=== PATIENT | male | born 1945 | race Hispanic/Latino ===

== ENCOUNTER 2019-10-17 07:47 | Inpatient (IN) | payer MEDICARE ==
--- NOTE | 2019-10-17 08:59 | Emergency Department Report ---
<INDIA STEVENSON Monalisa - Last Filed: 10/17/19 13:22> ED Dizziness HPI - General Chief Complaint: Dizziness Stated Complaint: DIZZINESS Time Seen by Provider: 10/17/19 08:26 - Related Data Previous Rx's Medication Instructions Recorded Last Taken Type HYDROcodone/APAP 5-325 [[place] 1 - 2 each PO Q6HR PRN #16 tablet 04/17/15 Unknown Rx 5/325] Allergies Allergy/AdvReac Type Severity Reaction Status Date / Time No Known Allergies Allergy Unverified 04/17/15 10:16 ED Past Medical Hx - Medications Home Medications: Home Medications Medication Instructions Recorded Confirmed Last Taken Type HYDROcodone/APAP 5-325 [[place] 1 - 2 each PO Q6HR PRN #16 tablet 04/17/15 Unknown Rx 5/325] ED Medical Decision Making - Lab Data Result diagrams: 10/17/19 08:56 10/17/19 08:56 - Medical Decision Making I obtained a history from the patient. He states he had an episode of apparent vertigo where he saw the clock spinning for about a half an hour yesterday. He states his difficulty with ambulation began yesterday. He does not feel as if he is going to pass out. He describes this as dizziness and feeling like he may "walk into a wall". He is a bit of a poor historian RE the current symptoms. However, he does state that his difficulty walking due to dizziness was persistent today. In addition, he has a history of asthma neurosis fugax and has carotid Dopplers done every 4 months. He takes aspirin daily. I did ambulate the patient. His gait is a bit broad-based. It is not shuffling. His son states that he usually walks similar to this because he "has bad knees". His blood pressure at this time is in the 170s systolic. Impressions Vertigo Gait disturbance Uncontrolled hypertension AAA Plan We'll discuss with hospitalist. I believe the patient would be best admitted for observation MRI study and further workup possibly echocardiogram and repeat carotid Dopplers, etc. per hospitalist service. ED Disposition Clinical Impression: Dizziness, Ataxic gait Disposition: OP ADMIT IP TO THIS HOSP Condition: Stable Referrals: LEDY VASQUEZ MD [Primary Care Provider] - 3-5 Days <RETA FRANKEL - Last Filed: 10/17/19 14:37> ED Dizziness HPI - General Source: patient, EMS Mode of arrival: Stretcher Limitations: No Limitations - History of Present Illness Initial Comments: 74-year-old male patient with history of hypertension, amaurosis fuga x, and AAA presents with complaints of dizziness yesterday. Patient states dizziness occurs mainly with ambulation and he describes it as feeling unsteady and oriented. She states while sitting she does not feel dizzy. He denies any history of [place]/CVA/DVT/PE, headache, vision changes, confusion, speech changes, numbness/tingling/weakness, chest pain/shortness of breath, abdominal pain, changes in stools/urination, or fever/chills/sweats. Patient states he is unsure of the size of his AAA and last had it checked in June of this year and is due for another check in December of next year. MD Complaint: dizziness ED Review of Systems ROS: Stated complaint: DIZZINESS Other details as noted in HPI Constitutional: denies: chills, fever Eyes: denies: eye pain, vision change ENT: denies: hearing loss, epistaxis, congestion Respiratory: denies: cough, orthopnea, shortness of breath, SOB with exertion, SOB at rest Cardiovascular: denies: chest pain, palpitations, edema, syncope Endocrine: no symptoms reported Gastrointestinal: denies: abdominal pain, nausea, diarrhea Genitourinary: denies: urgency, dysuria, frequency, hematuria Musculoskeletal: denies: back pain, joint swelling, arthralgia Skin: denies: rash, lesions Neurological: denies: headache, weakness, numbness, paresthesias Psychiatric: denies: anxiety, depression Hematological/Lymphatic: denies: easy bleeding ED Past Medical Hx - Past Medical History Previous Medical History?: Yes Hx Hypertension: Yes Hx Heart Attack/AMI: Yes Hx Arthritis: Yes (OSTEOARTHRITIS) Additional medical history: CAD, Triple Bypass, AAA that is monitored every 4 months - Surgical History Past Surgical History?: Yes Hx Coronary Stent: Yes Hx Open Heart Surgery: Yes Additional Surgical History: MELANOMA REMOVED BACK - Social History Smoking Status: Never Smoker Substance Use Type: None ED Physical Exam - General Limitations: No Limitations General appearance: alert, in no apparent distress - Head Head exam: Present: atraumatic, normocephalic - Eye Eye exam: Present: normal appearance, PERRL, EOMI. Absent: scleral icterus - ENT ENT exam: Present: mucous membranes moist - Neck Neck exam: Present: normal inspection. Absent: tenderness, full ROM, lymphadeno jass - Respiratory Respiratory exam: Present: normal lung sounds bilaterally. Absent: respiratory distress, chest wall tenderness - Cardiovascular Cardiovascular Exam: Present: regular rate, normal rhythm. Absent: systolic murmur, diastolic murmur, rubs, gallop - GI/Abdominal GI/Abdominal exam: Present: soft, normal bowel sounds. Absent: distended, tenderness, guarding, rebound, rigid - Rectal Rectal exam: Present: deferred - Extremities Exam Extremities exam: Present: normal inspection, normal capillary refill. Absent: pedal edema, joint swelling, calf tenderness - Neurological Exam Neurological exam: Present: alert, oriented X3, CN II-XII intact. Absent: motor sensory deficit - Expanded Neurological Exam Expanded Speech: Present: fluid speech Cerebellar function: Finger to Nose: Normal, Heel to Márquez: Normal, Romberg: Normal Sensory exam: Upper Extremity Light Touch: Normal, Lower Extremity Light Touch: Normal Motor strength exam: RUE: 5, LUE: 5, RLE: 5, LLE: 5 - Psychiatric Psychiatric exam: Present: normal affect, normal mood - Skin Skin exam: Present: warm, dry, intact, normal color. Absent: rash ED Course Vital Signs 10/17/19 10/17/19 10/17/19 08:07 11:53 11:54 Temperature 98.3 F Pulse Rate 60 58 L 59 L Respiratory 16 13 Rate Blood Pressure 165/84 Blood Pressure 159/102 [Left] O2 Sat by Pulse 98 97 Oximetry ED Medical Decision Making - Lab Data Result diagrams: 10/17/19 08:56 10/17/19 08:56 Lab Results 10/17/19 10/17/19 10/17/19 Range/Units 08:19 08:19 08:56 WBC (4.5-11.0) K/mm3 RBC (3.65-5.03) M/mm3 Hgb (11.8-15.2) gm/dl Hct (35.5-45.6) % MCV (84-94) fl MCH (28-32) pg MCHC (32-34) % RDW (13.2-15.2) % Plt Count (140-440) K/mm3 PT 13.2 (12.2-14.9) Sec. INR 1.01 (0.87-1.13) Sodium 140 (137-145) mmol/L Potassium 4.4 (3.6-5.0) mmol/L Chloride 103.2 (98-107) mmol/L Carbon Dioxide 20 L (22-30) mmol/L Anion Gap 21 mmol/L BUN 14 (9-20) mg/dL Creatinine 0.9 (0.8-1.5) mg/dL Estimated GFR > 60 ml/min BUN/Creatinine Ratio 16 % Glucose 100 (75-100) mg/dL Calcium 9.4 (8.4-10.2) mg/dL Total Bilirubin 0.40 (0.1-1.2) mg/dL AST 17 (5-40) units/L ALT 16 (7-56) units/L Alkaline Phosphatase 47 (35-129) units/L Troponin T < 0.010 (0.00-0.029) ng/mL Total Protein 6.6 (6.3-8.2) g/dL Albumin 4.2 (3.9-5) g/dL Albumin/Globulin Ratio 1.8 % TSH (0.270-4.200) mlU/mL Urine Color (Yellow) Urine Turbidity (Clear) Urine pH (5.0-7.0) Ur Specific [place] (1.003-1.030) Urine Protein (Negative) mg/dL Urine Glucose (UA) (Negative) mg/dL Urine Ketones (Negative) mg/dL Urine Blood (Negative) Urine Nitrite (Negative) Urine Bilirubin (Negative) Urine Urobilinogen (<2.0) mg/dL Ur Leukocyte Esterase (Negative) Urine WBC (Auto) (0.0-6.0) /HPF Urine RBC (Auto) (0.0-6.0) /HPF 10/17/19 10/17/19 10/17/19 Range/Units 08:56 09:24 10:19 WBC 4.4 L (4.5-11.0) K/mm3 RBC 4.69 (3.65-5.03) M/mm3 Hgb 14.0 (11.8-15.2) gm/dl Hct 41.5 (35.5-45.6) % MCV 89 (84-94) fl MCH 30 (28-32) pg MCHC 34 (32-34) % RDW 13.4 (13.2-15.2) % Plt Count 208 (140-440) K/mm3 PT (12.2-14.9) Sec. INR (0.87-1.13) Sodium (137-145) mmol/L Potassium (3.6-5.0) mmol/L Chloride (98-107) mmol/L Carbon Dioxide (22-30) mmol/L Anion Gap mmol/L BUN (9-20) mg/dL Creatinine (0.8-1.5) mg/dL Estimated GFR ml/min BUN/Creatinine Ratio % Glucose (75-100) mg/dL Calcium (8.4-10.2) mg/dL Total Bilirubin (0.1-1.2) mg/dL AST (5-40) units/L ALT (7-56) units/L Alkaline Phosphatase (35-129) units/L Troponin T (0.00-0.029) ng/mL Total Protein (6.3-8.2) g/dL Albumin (3.9-5) g/dL Albumin/Globulin Ratio % TSH 1.180 (0.270-4.200) mlU/mL Urine Color Yellow (Yellow) Urine Turbidity Clear (Clear) Urine pH 7.0 (5.0-7.0) Ur Specific [place] 1.012 (1.003-1.030) Urine Protein <15 mg/dl (Negative) mg/dL Urine Glucose (UA) Neg (Negative) mg/dL Urine Ketones Neg (Negative) mg/dL Urine Blood Neg (Negative) Urine Nitrite Neg (Negative) Urine Bilirubin Neg (Negative) Urine Urobilinogen < 2.0 (<2.0) mg/dL Ur Leukocyte Esterase Neg (Negative) Urine WBC (Auto) < 1.0 (0.0-6.0) /HPF Urine RBC (Auto) 1.0 (0.0-6.0) /HPF - Radiology Data CT HEAD WITHOUT CONTRAST INDICATION / CLINICAL INFORMATION: Dizziness for one day. TECHNIQUE: Axial imaging performed from the skull apex through the skull base without the use of contrast. Sagittal and coronal reformatted images. All CT scans at this location are performed using CT dose reduction for ALARA by means of automated exposure control. COMPARISON: None available. FINDINGS: CEREBRAL PARENCHYMA: No significant abnormality. No acute territorial infarct. HEMORRHAGE: None. EXTRA-AXIAL SPACES: Normal in size and morphology for the patient's age. VENTRICULAR SYSTEM: Normal in size and morphology for the patient's age. MIDLINE SHIFT OR HERNIATION: None. CEREBELLUM / BRAINSTEM: No significant abnormality. CALVARIUM: No significant abnormality. ORBITS: Normal as visualized. PARANASAL SINUSES / MASTOID AIR CELLS: Normal as visualized. SOFT TISSUES of HEAD: No significant abnormality. ADDITIONAL FINDINGS: None. IMPRESSION: No acute intracranial abnormality. . . . . CHEST 1 VIEW INDICATION: dizziness. COMPARISON: None FINDINGS: Support devices: None. Heart: Heart size is within normal limits. Previous CABG changes are suspected. Lungs/Pleura: No acute air space or interstitial disease. Additional findings: None. IMPRESSION: No acute findings. Critical care attestation.: If time is entered above; I have spent that time in minutes in the direct care of this critically ill patient, excluding procedure time. ED Disposition Is pt being admited?: Yes
[2019-10-17 09:10] LABS: INR 1.01 (0.87-1.13)
--- NOTE | 2019-10-17 09:41 | Cat Scan Report ---
CT HEAD WITHOUT CONTRAST INDICATION / CLINICAL INFORMATION: Dizziness for one day. TECHNIQUE: Axial imaging performed from the skull apex through the skull base without the use of cont rast. Sagittal and coronal reformatted images. All CT scans at this location are performed using CT dose reduction for ALARA by means of automated exposure control. COMPARISON: None available. FINDINGS: CEREBRAL PARENCHYMA: No significant abnormality. No acute territorial infarct. HEMORRHAGE: None. EXTRA-AXIAL SPACES: Normal in size and morphology for the patient's age. VENTRICULAR SYSTEM: Normal in size and morphology for the patient's age. MIDLINE SHIFT OR HERNIATION: None. CEREBELLUM / BRAINSTEM: No significant abnormality. CALVARIUM: No significant abnormality. ORBITS: Normal as visualized. PARANASAL SINUSES / MASTOID AIR CELLS: Normal as visualized. SOFT TISSUES of HEAD: No significant abnormality. ADDITIONAL FINDINGS: None. IMPRESSION: No acute intracranial abnormality. Signer Name: Augusto Ornelas Jr, MD Signed: 10/17/2019 9:37 AM Workstation Name: [id number]
[2019-10-17 09:54] LABS: Hematocrit 41.5 % (35.5-45.6); Mean Corpuscular HGB Conc 34 % (32-34); Mean Corpuscular Volume 89 fl (84-94); Platelet Count 208 K/mm3 (140-440); Red Blood Count 4.69 M/mm3 (3.65-5.03); Red Cell Distribution Width 13.4 % (13.2-15.2)
--- NOTE | 2019-10-17 09:57 | XRay Report ---
CHEST 1 VIEW INDICATION: dizziness. COMPARISON: None FINDINGS: Support devices: None. Heart: Heart size is within normal limits. Previous CABG changes are suspected. Lungs/Pleura: No acute air space or interstitial disease. Additional findings: None. IMPRESSION: No acute findings. Signer Name: Aguusto Ornelas Jr, MD Signed: 10/17/2019 9:52 AM Workstation Name: [id number]
[2019-10-17 10:09] LABS: Alanine Aminotransferase 16 units/L (7-56); Albumin 4.2 g/dL (3.9-5); BUN/Creatinine Ratio 16; Blood Urea Nitrogen 14 mg/dL (9-20); Calcium 9.4 mg/dL (8.4-10.2); Hemolysis Index 21
[2019-10-17] MEDS ORDERED: SODIUM CHLORIDE 0.9% 1000 ML 1,000 ML IV ONE (10:46)
[2019-10-17 11:15] LABS: Bilirubin,Urine NEG (Negative); Blood,Urine NEG (Negative); Color,Urine Yellow (Yellow); Protein,Urine <15 mg/dL mg/dL (Negative); Urobilinogen,Urine < 2.0 mg/dL (<2.0); WBC,Urine < 1.0 /HPF (0.0-6.0)
[2019-10-17] MEDS ORDERED: ACETAMINOPHEN 325 MG TAB PO PRN ×2 (20:57→20:59)
[2019-10-17] MEDS ORDERED: METOCLOPRAMIDE 10 MG/2 ML INJ IV PRN (20:59)
[2019-10-17] MEDS ORDERED: HYDROmorphone 1 MG/1 ML INJ IV PRN (20:59)
[2019-10-17] MEDS ORDERED: ONDANSETRON 4 MG/2 ML INJ IV PRN (20:59)
[2019-10-17] MEDS ORDERED: NON-FORMULARY EACH (Losartan Potassium [Losartan Potassium] 100 MG) PO SCH (21:00)
[2019-10-17] MEDS ORDERED: SODIUM CHLORIDE 0.9% 1000 ML 1,000 ML IV SCH (21:00)
--- NOTE | 2019-10-17 21:11 | History and Physical Report ---
History of Present Illness Date of examination: 10/17/19 Date of admission: 10/17/19 13:55 Chief complaint: Dizziness and unsteady gait since yesterday History of present illness: 74-year-old male with history of hypertension coronary, coronary artery disease: Triple bypass surgery and aortic abdominal aneurysm which is stable comes in for unsteady gait and dizziness since yesterday. No dysarthria. No nausea or vomiting. No diplopia. No nasal regurgitation of fluids. Patient has been persistently unsteady while walking as also has severe dizzine ss. No other precipitating or exacerbating factors. No shortness of breath or chest pain. Past History Past Medical History: CAD (patient had triple bypass surgery), hypertension, hyperlipidemia, other (patient has abdominal aortic aneurysm which is stable as per the patient) Past Surgical History: CABG (3), PTCA Social history: lives with family, full code. denies: smoking (quit smoking in the past) Family history: hypertension Medications and Allergies Allergies Allergy/AdvReac Type Severity Reaction Status Date / Time No Known Allergies Allergy Unverified 04/17/15 10:16 Home Medications Medication Instructions Recorded Confirmed Last Taken Type Acetaminophen [Tylenol] 650 mg PO Q6HR PRN 10/17/19 10/17/19 Unknown History Aspirin [Aspirin BABY CHEW TAB] 81 mg PO BID 10/17/19 10/17/19 Unknown History Losartan Potassium 100 mg PO DAILY 10/17/19 10/17/19 Unknown History Metoprolol Xl [Metoprolol 100 mg PO DAILY 10/17/19 10/17/19 Unknown History SUCCINATE ER TAB] Simvastatin 40 mg PO DAILY 10/17/19 10/17/19 Unknown History Active Meds: Active Medications Acetaminophen (Tylenol) 650 mg PO Q4H PRN PRN Reason: Pain MILD(1-3)/Fever >100.5/[place] Aspirin (Baby Aspirin) 81 mg PO BID DAYA Famotidine (Pepcid) 20 mg IV BID DAYA Hydromorphone HCl (Dilaudid) 0.5 mg IV Q3H PRN PRN Reason: Pain , Severe (7-10) Sodium Chloride (Nacl 0.9% 1000 Ml) 1,000 mls @ 75 mls/hr IV DIRECT DAYA Metoclopramide HCl (Reglan) 10 mg IV Q6H PRN PRN Reason: Nausea And Vomiting Metoprolol Succinate (Metoprolol Xl) 100 mg PO DAILY [facility] Miscellaneous Medication (Losartan Potassium [Losartan Potassium]) 100 mg PO DAILY [facility] Miscellaneous Medication (Simvastatin [Simvastatin]) 40 mg PO DAILY [facility] Ondansetron HCl (Zofran) 4 mg IV Q8H PRN PRN Reason: Nausea And Vomiting Oxycodone/Acetaminophen (Percocet 5/325) 1 tab PO Q6H PRN PRN Reason: Pain, Moderate (4-6) Sodium Chloride (Sodium Chloride Flush Syringe 10 Ml) 10 ml IV BID DAYA Sodium Chloride (Sodium Chloride Flush Syringe 10 Ml) 10 ml IV PRN PRN PRN Reason: LINE FLUSH Review of Systems All systems: negative Constitutional: no weight loss, no weight gain, no fever, no chills, no sweats, no night sweats Ears, nose, mouth and throat: no nose pain, no nasal congestion, no sinus pressure Cardiovascular: no chest pain, no orthopnea, no palpitations, no rapid/irregular heart beat Respiratory: no cough, no cough with sputum, no excessive sputum, no hemoptysis, no shortness of breath, no dyspnea on exertion Gastrointestinal: no nausea (every ordered on this for a), no vomiting Rectal: pain Musculoskeletal: no neck stiffness, no neck pain Integumentary: no rash, no pruritis, no redness, no sores, no wounds, no jaundice, no boils, no blisters (hours always Bernie Og has a results and) Neurological: ataxia (follow-up), lack of coordination, gait dysfunction Psychiatric: no anxiety, no memory loss, no change in sleep habits, no sleep disturbances, no insomnia, no hypersomnia, no change in appetite, no change in libido, no suicidal ideation, no disorientation, no hallucinations Endocrine: no cold intolerance, no heat intolerance, no polyphagia Hematologic/Lymphatic: no easy bruising, no easy bleeding Allergic/Immunologic: no urticaria, no allergic rhinitis, no wheezing Exam - Constitutional Vitals: Temp Pulse Resp BP Pulse Ox 97.9 F 70 24 161/86 92 10/17/19 16:24 10/17/19 16:24 10/17/19 17:55 10/17/19 16:24 10/17/19 16:24 General appearance: Present: no acute distress, well-nourished - EENT Eyes: Present: PERRL ENT: hearing intact, clear oral mucosa - Neck Neck: Present: supple, normal ROM - Respiratory Respiratory effort: normal Respiratory: bilateral: CTA - Cardiovascular Heart rate: 78 Rhythm: regular Heart Sounds: Present: S1 & S2. Absent: rub, click - Extremities Extremities: no ischemia, pulses intact, pulses symmetrical, No edema Peripheral Pulses: within normal limits - Abdominal General gastrointestinal: Present: soft, non-tender, non-distended, normal bowel sounds Male genitourinary: Present: normal - Integumentary Integumentary: Present: clear, warm, dry - Musculoskeletal Musculoskeletal: gait normal, strength equal bilaterally - Psychiatric Psychiatric: appropriate mood/affect, intact judgment & insight - Neurologic Neurologic: CNII-XII intact, moves all extremities, gait normal (ataxic gait) - Allied Health Allied health notes reviewed: nursing, case management Results - Labs CBC & Chem 7: 10/17/19 08:56 10/17/19 08:56 Labs: Laboratory Last Values WBC 4.4 K/mm3 (4.5-11.0) L 10/17/19 08:56 RBC 4.69 M/mm3 (3.65-5.03) 10/17/19 08:56 Hgb 14.0 gm/dl (11.8-15.2) 10/17/19 08:56 Hct 41.5 % (35.5-45.6) 10/17/19 08:56 MCV 89 fl (84-94) 10/17/19 08:56 MCH 30 pg (28-32) 10/17/19 08:56 MCHC 34 % (32-34) 10/17/19 08:56 RDW 13.4 % (13.2-15.2) 10/17/19 08:56 Plt Count 208 K/mm3 (140-440) 10/17/19 08:56 PT 13.2 Sec. (12.2-14.9) 10/17/19 08:19 INR 1.01 (0.87-1.13) 10/17/19 08:19 Sodium 140 mmol/L (137-145) 10/17/19 08:56 Potassium 4.4 mmol/L (3.6-5.0) 10/17/19 08:56 Chloride 103.2 mmol/L (98-107) 10/17/19 08:56 Carbon Dioxide 20 mmol/L (22-30) L 10/17/19 08:56 Anion Gap 21 mmol/L 10/17/19 08:56 BUN 14 mg/dL (9-20) 10/17/19 08:56 Creatinine 0.9 mg/dL (0.8-1.5) 10/17/19 08:56 Estimated GFR > 60 ml/min 10/17/19 08:56 BUN/Creatinine Ratio 16 % 10/17/19 08:56 Glucose 100 mg/dL (75-100) 10/17/19 08:56 Calcium 9.4 mg/dL (8.4-10.2) 10/17/19 08:56 Total Bilirubin 0.40 mg/dL (0.1-1.2) 10/17/19 08:56 AST 17 units/L (5-40) 10/17/19 08:56 ALT 16 units/L (7-56) 10/17/19 08:56 Alkaline Phosphatase 47 units/L (35-129) 10/17/19 08:56 Troponin T < 0.010 ng/mL (0.00-0.029) 10/17/19 08:19 Total Protein 6.6 g/dL (6.3-8.2) 10/17/19 08:56 Albumin 4.2 g/dL (3.9-5) 10/17/19 08:56 Albumin/Globulin Ratio 1.8 % 10/17/19 08:56 TSH 1.180 mlU/mL (0.270-4.200) 10/17/19 09:24 Urine Color Yellow (Yellow) 10/17/19 10:19 Urine Turbidity Clear (Clear) 10/17/19 10:19 Urine pH 7.0 (5.0-7.0) 10/17/19 10:19 Ur Specific [place] 1.012 (1.003-1.030) 10/17/19 10:19 Urine Protein <15 mg/dl mg/dL (Negative) 10/17/19 10:19 Urine Glucose (UA) Neg mg/dL (Negative) 10/17/19 10:19 Urine Ketones Neg mg/dL (Negative) 10/17/19 10:19 Urine Blood Neg (Negative) 10/17/19 10:19 Urine Nitrite Neg (Negative) 10/17/19 10:19 Urine Bilirubin Neg (Negative) 10/17/19 10:19 Urine Urobilinogen < 2.0 mg/dL (<2.0) 10/17/19 10:19 Ur Leukocyte Esterase Neg (Negative) 10/17/19 10:19 Urine WBC (Auto) < 1.0 /HPF (0.0-6.0) 10/17/19 10:19 Urine RBC (Auto) 1.0 /HPF (0.0-6.0) 10/17/19 10:19 - Imaging and Cardiology EKG: report reviewed Chest x-ray: report reviewed (no acute findings) CT Scan - head: report reviewed (No acute findings) Imaging and Cardiology: EKG SINUS RHYTHM LAD, CONSIDER LEFT ANTERIOR FASCICULAR BLOCK RECONCILIATION CHANGES: RACE: FROM [place] TO Assessment and Plan Advance Directives: Yes VTE prophylaxis?: Chemical Plan of care discussed with patient/family: Yes - Patient Problems (1) CVA (cerebral vascular accident) Current Visit: Yes Status: Acute Qualifiers: CVA mechanism: unspecified Qualified Code(s): I63.9 - Cerebral infarction, unspecified Plan to address problem: Acute CVA Versus TIA Patient has persistent ataxia No other cerebellar signs No diplopia, no nasal regurgitation of fluids, no difficulty swallowing. We'll get MRI and CVA workup Neurology Dr. Aviles consulted . (2) Hypertension Current Visit: Yes Status: Chronic Qualifiers: Hypertension type: essential hypertension Qualified Code(s): I10 - Essential (primary) hypertension Plan to address problem: Continue antihypertensive (3) Coronary artery disease Current Visit: Yes Status: Chronic Qualifiers: Coronary Disease-Associated Artery/Lesion type: [place] artery [place] vs. transplanted heart: [place] heart Plan to address problem: Continue aspirin (4) Abdominal aortic aneurysm Current Visit: Yes Status: Chronic Qualifiers: Presence of rupture: without rupture Qualified Code(s): I71.4 - Abdominal aortic aneurysm, without rupture Plan to address problem: Stable (5) Hyperlipidemia Current Visit: Yes Status: Chronic Qualifiers: Hyperlipidemia type: mixed hyperlipidemia Qualified Code(s): E78.2 - Mixed hyperlipidemia Plan to address problem: On statins (6) DVT prophylaxis Current Visit: Yes Status: Acute Plan to address problem: On heparin and GI prophylaxis
[2019-10-17] MEDS ORDERED: ASPIRIN 81 MG TAB CHEW PO SCH (22:00)
[2019-10-17] MEDS: LOSARTAN 50 MG TAB PO SCH ×2 (23:18→23:31)
[2019-10-17] MEDS: METOPROLOL SUCCINATE XL 100 MG TAB PO SCH ×2 (23:18→23:30)
[2019-10-17] MEDS: PRAVASTATIN 80 MG TAB PO SCH (23:19)
[2019-10-17] MEDS: HEPARIN 5,000 UNIT/1 ML VIAL SUB-Q SCH (23:19)
[2019-10-17] MEDS: ASPIRIN 325 MG TAB PO SCH (23:19)
[2019-10-17] MEDS: FAMOTIDINE 20 MG/2 ML INJ IV SCH (23:19)
[2019-10-18] MEDS ORDERED: diphenhydrAMINE 25 MG CAP PO PRN (00:09)
[2019-10-18 05:52] LABS: Basophils % (Auto) 0.5 % (0.0-1.8); Eosinophils # (Auto) 0.1 K/mm3 (0.0-0.4); Eosinophils % (Auto) 2.7 % (0.0-4.3); Hematocrit 39.3 % (35.5-45.6); Hemoglobin 13.4 gm/dl (11.8-15.2); Lymphocytes # (Auto) 1.5 K/mm3 (1.2-5.4); Lymphocytes % (Auto) 34.4 % (13.4-35.0); Mean Corpuscular HGB Conc 34 % (32-34); Mean Corpuscular Volume 88 fl (84-94); Monocytes # (Auto) 0.4 K/mm3 (0.0-0.8); Monocytes % (Auto) 10.3 % (0.0-7.3); Platelet Count 190 K/mm3 (140-440); Red Blood Count 4.46 M/mm3 (3.65-5.03); Red Cell Distribution Width 13.5 % (13.2-15.2)
[2019-10-18 07:08] LABS: Alanine Aminotransferase 12 units/L (7-56); Albumin 3.6 g/dL (3.9-5); BUN/Creatinine Ratio 17; Blood Urea Nitrogen 12 mg/dL (9-20); Calcium 8.9 mg/dL (8.4-10.2); Chol/HDL Ratio 3.21 %; HDL Cholesterol 33 mg/dL (40-59); Hemolysis Index 4; LDL Cholesterol,Direct 60 mg/dL (50-130)
[2019-10-18 07:48] VITALS: BP 181/89
[2019-10-18] MEDS: oxyCODONE /ACETAMINOPHEN 5-325MG TAB PO PRN ×2 (08:28→21:24)
[2019-10-18] MEDS ORDERED: NON-FORMULARY EACH (Simvastatin [Simvastatin] 40 MG) PO SCH (10:00)
[2019-10-18] MEDS: ASPIRIN 325 MG TAB PO SCH (10:08)
[2019-10-18] MEDS: METOPROLOL SUCCINATE XL 100 MG TAB PO SCH (10:08)
[2019-10-18] MEDS: LOSARTAN 50 MG TAB PO SCH (10:08)
[2019-10-18] MEDS: FAMOTIDINE 20 MG/2 ML INJ IV SCH ×2 (10:08→21:24)
[2019-10-18] MEDS: HEPARIN 5,000 UNIT/1 ML VIAL SUB-Q SCH ×2 (10:09→21:24)
--- NOTE | 2019-10-18 10:24 | Progress Note ---
Assessment and Plan Assessment and plan: 74-year-old man with previous history of amaurosis fugax of his right eye 7 years ago who presents to the hospital with 1 day of ataxic gait. The patient relates that he had a headache over his right eye and right blepharospasm which was similar to his previous episode. With that episode he lost vision in his right eye, but this time he did not lose any vision his right eye but instead noticed that he had trouble walking. He is more comfortable driving that he is walking at this time due to ataxia. Acue CVA? Tele- neurology input appreciated, neurology consulted, Allow permissive hypertension, has received aspirin, stroke education, observe for arrhythmia on telemetry, -neurology consult pending -Patient is on aspirin at home, so if this is determined to be a stroke, would be considered a failure of aspirin. Lipid panel at goal LDL of 60 awaiting MRI brain, , echo -MRA head, carotid Dopplers shows significant stenosis of left ICA Case discussed with neurologist, will obtain CTA of neck, MRI to be done tomorrow as today is a holiday Dx cva ? Carotid stenosis -HTN AAA- follow annually for US HLD History Interval history: Patient continues to complain that he is having ataxic gait. Denies dizziness, denies vertigo Review of systems Constitutional: No fevers, no malaise, no joint pains CVS: No chest pain, no orthopnea, no pedal edema GI: No abdominal pain, no diarrhea, no vomiting, no constipation Respiratory: , no wheezing, no coughing Hospitalist Physical - Physical exam Narrative exam: General.: Appears well, no distress, nontoxic HEENT: Moist mucous membranes, extraocular muscles intact, no lymphadenopathy Neck: supple Cardiac: S1-S2 heard Lungs: clear to auscultation bilaterally Abdomen: soft , nontender, nondistended, bowel sounds positive Extremities: no edema clubbing or cyanosis Skin: no rash or lesions Neurologic: Broad-based ataxic gait Psych: calm, and cooperative - Constitutional Vitals: Temp Pulse Resp BP Pulse Ox 98.0 F 64 18 181/89 97 10/18/19 07:46 10/18/19 07:46 10/18/19 07:46 10/18/19 07:46 10/18/19 07:46 General appearance: Present: no acute distress, well-nourished Results - Labs CBC & Chem 7: 10/18/19 04:30 10/18/19 04:30 Labs: Laboratory Last Values WBC 4.4 K/mm3 (4.5-11.0) L 10/18/19 04:30 RBC 4.46 M/mm3 (3.65-5.03) 10/18/19 04:30 Hgb 13.4 gm/dl (11.8-15.2) 10/18/19 04:30 Hct 39.3 % (35.5-45.6) 10/18/19 04:30 MCV 88 fl (84-94) 10/18/19 04:30 MCH 30 pg (28-32) 10/18/19 04:30 MCHC 34 % (32-34) 10/18/19 04:30 RDW 13.5 % (13.2-15.2) 10/18/19 04:30 Plt Count 190 K/mm3 (140-440) 10/18/19 04:30 Lymph % (Auto) 34.4 % (13.4-35.0) 10/18/19 04:30 [place] % (Auto) 10.3 % (0.0-7.3) H 10/18/19 04:30 Eos % (Auto) 2.7 % (0.0-4.3) 10/18/19 04:30 Baso % (Auto) 0.5 % (0.0-1.8) 10/18/19 04:30 Lymph # 1.5 K/mm3 (1.2-5.4) 10/18/19 04:30 Mora # 0.4 K/mm3 (0.0-0.8) 10/18/19 04:30 Eos # 0.1 K/mm3 (0.0-0.4) 10/18/19 04:30 Baso # 0.0 K/mm3 (0.0-0.1) 10/18/19 04:30 Seg Neutrophils % 52.1 % (40.0-70.0) 10/18/19 04:30 Seg Neutrophils # 2.3 K/mm3 (1.8-7.7) 10/18/19 04:30 PT 13.2 Sec. (12.2-14.9) 10/17/19 08:19 INR 1.01 (0.87-1.13) 10/17/19 08:19 Sodium 140 mmol/L (137-145) 10/18/19 04:30 Potassium 3.8 mmol/L (3.6-5.0) 10/18/19 04:30 Chloride 104.6 mmol/L (98-107) 10/18/19 04:30 Carbon Dioxide 20 mmol/L (22-30) L 10/18/19 04:30 Anion Gap 19 mmol/L 10/18/19 04:30 BUN 12 mg/dL (9-20) 10/18/19 04:30 Creatinine 0.7 mg/dL (0.8-1.5) L 10/18/19 04:30 Estimated GFR > 60 ml/min 10/18/19 04:30 BUN/Creatinine Ratio 17 % 10/18/19 04:30 Glucose 101 mg/dL (75-100) H 10/18/19 04:30 Hemoglobin A1c 5.4 % (4-6) 10/17/19 21:11 Calcium 8.9 mg/dL (8.4-10.2) 10/18/19 04:30 Total Bilirubin 0.30 mg/dL (0.1-1.2) 10/18/19 04:30 AST 13 units/L (5-40) 10/18/19 04:30 ALT 12 units/L (7-56) 10/18/19 04:30 Alkaline Phosphatase 41 units/L (35-129) 10/18/19 04:30 Troponin T < 0.010 ng/mL (0.00-0.029) 10/17/19 08:19 Total Protein 6.3 g/dL (6.3-8.2) 10/18/19 04:30 Albumin 3.6 g/dL (3.9-5) L 10/18/19 04:30 Albumin/Globulin Ratio 1.3 % 10/18/19 04:30 Triglycerides 103 mg/dL (2-149) 10/18/19 04:30 Cholesterol 106 mg/dL (50-199) 10/18/19 04:30 LDL Cholesterol Direct 60 mg/dL (50-130) 10/18/19 04:30 HDL Cholesterol 33 mg/dL (40-59) L 10/18/19 04:30 Cholesterol/HDL Ratio 3.21 % 10/18/19 04:30 TSH 1.180 mlU/mL (0.270-4.200) 10/17/19 09:24 Urine Color Yellow (Yellow) 10/17/19 10:19 Urine Turbidity Clear (Clear) 10/17/19 10:19 Urine pH 7.0 (5.0-7.0) 10/17/19 10:19 Ur Specific [place] 1.012 (1.003-1.030) 10/17/19 10:19 Urine Protein <15 mg/dl mg/dL (Negative) 10/17/19 10:19 Urine Glucose (UA) Neg mg/dL (Negative) 10/17/19 10:19 Urine Ketones Neg mg/dL (Negative) 10/17/19 10:19 Urine Blood Neg (Negative) 10/17/19 10:19 Urine Nitrite Neg (Negative) 10/17/19 10:19 Urine Bilirubin Neg (Negative) 10/17/19 10:19 Urine Urobilinogen < 2.0 mg/dL (<2.0) 10/17/19 10:19 Ur Leukocyte Esterase Neg (Negative) 10/17/19 10:19 Urine WBC (Auto) < 1.0 /HPF (0.0-6.0) 10/17/19 10:19 Urine RBC (Auto) 1.0 /HPF (0.0-6.0) 10/17/19 10:19 Active Medications - Current Medications Current Medications: Generic Name Dose Route Start Last Admin Trade Name Freq PRN Reason Stop Dose Admin Acetaminophen 650 mg 10/17/19 20:59 Tylenol PO Q4H PRN Pain MILD(1-3)/Fever >100.5/DE [place] Aspirin 325 mg 10/17/19 22:00 10/18/19 10:08 Aspirin PO 325 mg QDAY DAYA Administration Diphenhydramine HCl 25 mg 10/18/19 00:09 10/18/19 00:22 Benadryl PO 25 mg QHS PRN Administration Sleep Famotidine 20 mg 10/17/19 22:00 10/18/19 10:08 Pepcid IV 20 mg BID DAYA Administration Heparin Sodium (Porcine) 5,000 unit 10/17/19 22:00 10/18/19 10:09 Heparin SUB-Q 5,000 unit Q12HR DAYA Administration Hydromorphone HCl 0.5 mg 10/17/19 20:59 Dilaudid IV Q3H PRN Pain , Severe (7-10) Sodium Chloride 1,000 mls @ 75 mls/hr 10/17/19 21:00 Nacl 0.9% 1000 Ml IV DIRECT DAYA Losartan Potassium 100 mg 10/17/19 21:00 10/18/19 10:08 Cozaar PO 100 mg DAILY DAYA Administration Metoclopramide HCl 10 mg 10/17/19 20:59 Reglan IV Q6H PRN Nausea And Vomiting Metoprolol Succinate 100 mg 10/17/19 21:00 10/18/19 10:08 Metoprolol Xl PO 100 mg DAILY DAYA Administration Ondansetron HCl 4 mg 10/17/19 20:59 Zofran IV Q8H PRN Nausea And Vomiting Oxycodone/Acetaminophen 1 tab 10/17/19 20:59 10/18/19 08:28 Percocet 5/325 PO 1 tab Q6H PRN Administration Pain, Moderate (4-6) Pravastatin Sodium 80 mg 10/17/19 22:00 10/17/19 23:19 Pravachol PO 80 mg QHS DAYA Administration Sodium Chloride 10 ml 10/17/19 22:00 10/18/19 10:09 Sodium Chloride Flush Syringe 10 Ml IV 10 ml BID DAYA Administration Sodium Chloride 10 ml 10/17/19 20:59 Sodium Chloride Flush Syringe 10 Ml IV PRN PRN LINE FLUSH
--- NOTE | 2019-10-18 10:27 | Vascular Lab Report ---
Bilateral Carotid Doppler Ultrasound INDICATION : stroke, altered mental status and dizziness since yesterday TECHNIQUE: Grayscale and color Doppler imaging performed through the neck. COMPARISON: None FINDINGS: Right: There is no significant atherosclerotic disease. Peak systolic velocity in the CCA is 67 cm/ s with end-diastolic velocity of 15 cm/s. Peak systolic velocity in the proximal ICA is 64 cm/s with end-diastolic velocity of 26 cm/s. ICA to CCA ratio is less than 2. There is antegrade flow in the E CA and the vertebral artery. Left: There is moderate discogenic disease in the carotid bulb extending into the proximal ICA. Peak systolic velocity in the CCA is 112 cm/s with end-diastolic velocity of 26 cm/s. Peak systolic veloci ty in the proximal ICA is 131 cm/s with end-diastolic velocity of 26 cm/s. ICA to CCA ratio is less t martinez 2. There is antegrade flow in the ECA and the vertebral artery. IMPRESSION: 1. 50-69% stenosis in the left carotid bulb/proximal ICA by NASCET criteria. 2. No hemodynamically significant stenosis by NASCET criteria. Signer Name: Amol Sahu MD Signed: 10/18/2019 10:22 AM Workstation Name: [id number]
--- NOTE | 2019-10-18 15:40 | Consultation ---
History of Present Illness Consult date: 10/18/19 Reason for Consult: Unsteady gait Chief complaint: Unsteady gait History of present illness: Patient is a 74 y/o man w/ a h/o HTN, HLD, AAA, CAD, h/o amaurosis fugax. Patient states that 2 days ago, he began to experience unsteadiness in gait after he woke up. Symptoms continued throughout the day, as well as yesterday. He also noted difficulty with vision, described as the clock appearing to be moving around. Patient states that today his symptoms have improved, however not completely resolved. Past History Past Medical History: CAD (patient had triple bypass surgery), hypertension, hyperlipidemia, other (patient has abdominal aortic aneurysm which is stable as per the patient) Past Surgical History: CABG (3), PTCA Social history: lives with family, full code. denies: smoking (quit smoking in the past) Family history: hypertension Medications and Allergies Allergies Allergy/AdvReac Type Severity Reaction Status Date / Time No Known Allergies Allergy Unverified 04/17/15 10:16 Home Medications Medication Instructions Recorded Confirmed Last Taken Type Acetaminophen [Tylenol] 650 mg PO Q6HR PRN 10/17/19 10/17/19 Unknown History Aspirin [Aspirin BABY CHEW TAB] 81 mg PO BID 10/17/19 10/17/19 Unknown History Losartan Potassium 100 mg PO DAILY 10/17/19 10/17/19 Unknown History Metoprolol Xl [Metoprolol 100 mg PO DAILY 10/17/19 10/17/19 Unknown History SUCCINATE ER TAB] Simvastatin 40 mg PO DAILY 10/17/19 10/17/19 Unknown History Active Meds: Active Medications Acetaminophen (Tylenol) 650 mg PO Q4H PRN PRN Reason: Pain MILD(1-3)/Fever >100.5/DE [place] Aspirin (Aspirin) 325 mg PO QDAY [facility] Last Admin: 10/18/19 10:08 Dose: 325 mg Documented by: Diphenhydramine HCl (Benadryl) 25 mg PO QHS PRN PRN Reason: Sleep Last Admin: 10/18/19 00:22 Dose: 25 mg Documented by: Famotidine (Pepcid) 20 mg IV BID [facility] Last Admin: 10/18/19 10:08 Dose: 20 mg Documented by: Heparin Sodium (Porcine) (Heparin) 5,000 unit SUB-Q Q12HR [facility] Last Admin: 10/18/19 10:09 Dose: 5,000 unit Documented by: Hydromorphone HCl (Dilaudid) 0.5 mg IV Q3H PRN PRN Reason: Pain , Severe (7-10) Sodium Chloride (Nacl 0.9% 1000 Ml) 1,000 mls @ 75 mls/hr IV DIRECT [facility] Labetalol HCl (Labetalol) 10 mg IV Q4H PRN PRN Reason: BP >170/105; hold for HR <60 Metoclopramide HCl (Reglan) 10 mg IV Q6H PRN PRN Reason: Nausea And Vomiting Metoprolol Succinate (Metoprolol Xl) 100 mg PO DAILY [facility] Last Admin: 10/18/19 10:08 Dose: 100 mg Documented by: Ondansetron HCl (Zofran) 4 mg IV Q8H PRN PRN Reason: Nausea And Vomiting Oxycodone/Acetaminophen (Percocet 5/325) 1 tab PO Q6H PRN PRN Reason: Pain, Moderate (4-6) Last Admin: 10/18/19 08:28 Dose: 1 tab Documented by: Pravastatin Sodium (Pravachol) 80 mg PO QHS [facility] Last Admin: 10/17/19 23:19 Dose: 80 mg Documented by: Sodium Chloride (Sodium Chloride Flush Syringe 10 Ml) 10 ml IV BID [facility] Last Admin: 10/18/19 10:09 Dose: 10 ml Documented by: Sodium Chloride (Sodium Chloride Flush Syringe 10 Ml) 10 ml IV PRN PRN PRN Reason: LINE FLUSH Review of Systems All systems: negative Neurological: balance difficulties, double vision Physical Examination - Vital Signs Vital Signs: Vital Signs Temp Pulse Resp BP Pulse Ox 98.3 F 60 16 165/84 98 10/17/19 08:07 10/17/19 08:07 10/17/19 08:07 10/17/19 08:07 10/17/19 08:07 - Physical Exam Narrative exam: Patient is alert, awake, oriented x4. Follows complex commands. PERRL, EOMI, VFF, no facial weakness noted, tongue midline, b/l intact to LT. 5/5 strength in all extremities. B/l intact to LT. Intact to FTN, dysmetria on on HTS b/l. Steady gait. 2+ reflexes throughout. No dysarthria noted. No aphasia noted. - Constitutional General appearance: comfortable - EENT EENT: Present: ATNC, PERRL, mucous membranes moist, hearing intact, vision intact - Respiratory Respiratory: Present: lungs clear, normal breath sounds - Cardiovascular Cardiovascular: Present: regular rate, normal S1, normal S2 - Gastrointestinal Gastrointestinal: Present: normoactive bowel sounds, soft, non-tender - Integumentary Integumentary: Present: normal - Musculoskeletal Musculoskeletal: Present: no fluid collection, no pain - Psychiatric Psychiatric: Present: mood/affect appropriate - Level of Consciousness 1a. Level of Consciousness: alert/keenly responsive - LOC Questions 1b. LOC Questions: answers both correctly - LOC Command 1c. LOC Commands: performs tasks correctly - Best Gaze 2. Best Gaze: normal - Visual 3. Visual: no visual loss - Facial Palsy 4. Facial Palsy: normal symmetrical movement - Motor Arm 5a. Motor Arm Left: no drift 5b. Motor Arm Right: no drift - Motor Leg 6a. Motor Leg Left: no drift 6b. Motor Leg Right: no drift - Limb Ataxia 7. Limb Ataxia: present 2 limbs - Sensory 8. Sensory: normal - Best Language 9. Best Language: no aphasia - Dysarthria 10. Dysarthria: normal - Extinction and Inattention 11. Extinction/Inattention: no abnormality - Scoring Total Score: 2 Stroke Severity: Minor Stroke Results - Laboratory Findings CBC and BMP: 10/18/19 04:30 10/18/19 04:30 Abnormal Lab Findings: Abnormal Labs 10/17/19 10/17/19 10/18/19 08:56 08:56 04:30 WBC 4.4 L 4.4 L [place] % (Auto) 10.3 H Carbon Dioxide 20 L Creatinine Glucose Albumin HDL Cholesterol 10/18/19 04:30 WBC [place] % (Auto) Carbon Dioxide 20 L Creatinine 0.7 L Glucose 101 H Albumin 3.6 L HDL Cholesterol 33 L Assessment and Plan Patient is a 74 y/o man w/ a h/o HTN, HLD, AAA, CAD, h/o amaurosis fugax, who p/w unsteady gait. According to the patient's clinical findings, it is possible that the patient has had an acute ischemic stroke. Plan: 1. Unsteady gait: - Likely due to stroke - Check MRI brain - Check MRA head/neck - CUS: LICA 50-69% stenosis - CT head unremarkable - Cont. ASA - Cont. statin, LDL 60. Goal LDL <70 - Telemetry monitoring while in house - PT/OT/ST - DVT Ppx: Recommend lovenox 2. Hypertension: - Recommend BP goal of normotension, as it has been >48 hours since symptom onset. - Will continue to monitor patient. Thank you for allowing me to take part in the care of this patient. Nacho Aviles MD Neurology
--- NOTE | 2019-10-18 17:54 | Cat Scan Report ---
CTA neck with and without contrast CLINICAL HISTORY: Carotid stenosis. Technique: Multiple contiguous postcontrast axial CT images of the neck were obtained at 0.63 mm inte rvals. 3 plane MIP reconstructions were produced. Precontrast localizing images were also performed. All CT scans at this location are performed using the CT dose reduction for ALARA by means of automat ed exposure control. FINDINGS: There is atherosclerotic calcification involving the left carotid bifurcation with approxim ately 50% stenosis by NASCET criteria. Foci of calcification are also seen more distally within the l eft carotid bulb without significant stenosis at. There is also mild plaque along the anterior distal left common carotid artery without significant stenosis. The more distal cervical left ICA is unrema rkable. There is mild calcification involving right carotid bifurcation and proximal right ICA without signif icant stenosis by NASCET criteria. There is developmental tortuosity of the more distal cervical righ t ICA without significant narrowing. The right common carotid artery is unremarkable. 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 The left vertebral artery is ricardo nant. There is a small focus of calcification at the origin of the left vertebral artery without sign ificant stenosis. There is no significant stenosis involving the arch vessels. There is atherosclerot ic calcification involving the intracranial internal carotid arteries without significant focal steno sis at. IMPRESSION: There is calcified plaque involving the left carotid bifurcation with approximately 50% stenosis by N ASCET criteria. There is mild calcification involving the right carotid bifurcation without significant stenosis by N ASCET criteria. 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 Signer Name: Yung Aguayo MD Signed: 10/18/2019 5:49 PM Workstation Name: [id number]
[2019-10-18] MEDS: PRAVASTATIN 80 MG TAB PO SCH (21:24)
[2019-10-19] MEDS ORDERED: LOSARTAN 50 MG TAB PO SCH (11:00)
--- NOTE | 2019-10-19 11:16 | Progress Note ---
Assessment and Plan Patient is a 74 y/o man w/ a h/o HTN, HLD, AAA, CAD, h/o amaurosis fugax, who p/w unsteady gait. According to the patient's clinical findings, it is possible that the patient has had an acute ischemic stroke or a TIA. Plan: 1. Unsteady gait: - Likely due to stroke vs. TIA. - Check MRI brain- pending - Check MRA head- pending - CTA neck: LICA 50% stenosis. - CUS: LICA 50-69% stenosis - CT head unremarkable - Cont. ASA - Cont. statin, LDL 60. Goal LDL <70 - Telemetry monitoring while in house - PT/OT/ST - DVT Ppx: Recommend lovenox 2. Hypertension: - Recommend BP goal of normotension, as it has been >48 hours since symptom onset. - Will sign off, as I am not covering neurology service over the weekend. Please consult neurologist covering weekend for further neurologic management and monitoring. Thank you for allowing me to take part in the care of this patient. Nacho Aviles MD Neurology Subjective Date of service: 10/19/19 Principal diagnosis: TIA Interval history: No acute events overnight. Patient states that he feels better today, and no longer feels unsteady when talking. Objective - Exam Narrative Exam: Patient is alert, awake, oriented x4. Follows complex commands. PERRL, EOMI, VFF, no facial weakness noted, tongue midline, b/l intact to LT. 5/5 strength in all extremities. B/l intact to LT. Intact to FTN, dysmetria on on HTS b/l. Steady gait. 2+ reflexes throughout. No dysarthria noted. No aphasia noted. - Vital Sign Vital Signs - 12hr 10/19/19 10:00 Pulse Rate 63 - General Apperance Constitutional: comfortable - EENT EENT: ATNC, PERRL, mucous membranes moist, hearing intact, vision intact - Respiratory Respiratory: lungs clear, normal breath sounds - Cardiovascular Cardiovascular: regular rate, normal S1, normal S2 Extremities: no clubbing, cyanosis, no inflammation - Gastrointestinal Gastrointestinal: normoactive bowel sounds, soft, non-tender - Integumentary Integumentary: normal - Musculoskeletal Musculoskeletal: no fluid collection, no pain - Psychiatric Psychiatric: mood/affect appropriate - Laboratory Findings CBC and BMP: 10/18/19 04:30 10/18/19 04:30 Abnormal Lab Findings: Abnormal Labs 10/17/19 10/17/19 10/18/19 08:56 08:56 04:30 WBC 4.4 L 4.4 L [place] % (Auto) 10.3 H Carbon Dioxide 20 L Creatinine Glucose Albumin HDL Cholesterol 10/18/19 04:30 WBC [place] % (Auto) Carbon Dioxide 20 L Creatinine 0.7 L Glucose 101 H Albumin 3.6 L HDL Cholesterol 33 L
--- NOTE | 2019-10-19 11:32 | Consultation ---
History of Present Illness - Reason for Consult Consult date: 10/19/19 left carotid stenosis - History of Present Illness Patient presents with a history of transient dizziness. No loss of cons ciousness. He underwent an ultrasound of his carotids followed by a CTA which demonstrates proximally 50% stenosis in the left carotid bulb. Minimal amount calcification in the cavernous portion of the carotid as well bilaterally. Patient only undergoing a cardiac workup. His symptoms resolved following admission. No recurrence. Patient is able to ambulate easily and without difficulty. Past History Past Medical History: CAD (patient had triple bypass surgery), hypertension, hyperlipidemia, other (patient has abdominal aortic aneurysm which is stable as per the patient) Past Surgical History: CABG (3), PTCA Social history: lives with family, full code. denies: smoking (quit smoking in the past) Family history: hypertension Medications and Allergies Allergies Allergy/AdvReac Type Severity Reaction Status Date / Time No Known Allergies Allergy Unverified 04/17/15 10:16 Home Medications Medication Instructions Recorded Confirmed Last Taken Type Acetaminophen [Tylenol] 650 mg PO Q6HR PRN 10/17/19 10/17/19 Unknown History Aspirin [Aspirin BABY CHEW TAB] 81 mg PO BID 10/17/19 10/17/19 Unknown History Losartan Potassium 100 mg PO DAILY 10/17/19 10/17/19 Unknown History Metoprolol Xl [Metoprolol 100 mg PO DAILY 10/17/19 10/17/19 Unknown History SUCCINATE ER TAB] Simvastatin 40 mg PO DAILY 10/17/19 10/17/19 Unknown History Active Meds: Active Medications Acetaminophen (Tylenol) 650 mg PO Q4H PRN PRN Reason: Pain MILD(1-3)/Fever >100.5/DE [place] Aspirin (Aspirin) 325 mg PO QDAY [facility] Last Admin: 10/18/19 10:08 Dose: 325 mg Documented by: Diphenhydramine HCl (Benadryl) 25 mg PO QHS PRN PRN Reason: Sleep Last Admin: 10/18/19 00:22 Dose: 25 mg Documented by: Famotidine (Pepcid) 20 mg IV BID [facility] Last Admin: 10/18/19 21:24 Dose: 20 mg Documented by: Heparin Sodium (Porcine) (Heparin) 5,000 unit SUB-Q Q12HR [facility] Last Admin: 10/18/19 21:24 Dose: 5,000 unit Documented by: Hydromorphone HCl (Dilaudid) 0.5 mg IV Q3H PRN PRN Reason: Pain , Severe (7-10) Sodium Chloride (Nacl 0.9% 1000 Ml) 1,000 mls @ 75 mls/hr IV DIRECT [facility] Labetalol HCl (Labetalol) 10 mg IV Q4H PRN PRN Reason: BP >170/105; hold for HR <60 Losartan Potassium (Cozaar) 100 mg PO QDAY [facility] Metoclopramide HCl (Reglan) 10 mg IV Q6H PRN PRN Reason: Nausea And Vomiting Metoprolol Succinate (Metoprolol Xl) 100 mg PO DAILY [facility] Last Admin: 10/18/19 10:08 Dose: 100 mg Documented by: Ondansetron HCl (Zofran) 4 mg IV Q8H PRN PRN Reason: Nausea And Vomiting Oxycodone/Acetaminophen (Percocet 5/325) 1 tab PO Q6H PRN PRN Reason: Pain, Moderate (4-6) Last Admin: 10/18/19 21:24 Dose: 1 tab Documented by: Pravastatin Sodium (Pravachol) 80 mg PO QHS [facility] Last Admin: 10/18/19 21:24 Dose: 80 mg Documented by: Sodium Chloride (Sodium Chloride Flush Syringe 10 Ml) 10 ml IV BID [facility] Last Admin: 10/18/19 21:26 Dose: 10 ml Documented by: Sodium Chloride (Sodium Chloride Flush Syringe 10 Ml) 10 ml IV PRN PRN PRN Reason: LINE FLUSH Review of Systems All systems: negative Exam - Constitutional Vitals: Temp Pulse Resp BP Pulse Ox 98.0 F 63 18 181/89 97 10/18/19 07:46 10/19/19 10:00 10/18/19 07:46 10/18/19 07:46 10/18/19 07:46 General appearance: Present: no acute distress - EENT Eyes: Present: EOM intact ENT: hearing intact - Neck Neck: Present: supple, normal ROM - Respiratory Respiratory effort: normal - Abdominal General gastrointestinal: Present: deferred Male genitourinary: Present: deferred - Rectal Rectal Exam: deferred - Musculoskeletal Musculoskeletal: strength equal bilaterally - Psychiatric Psychiatric: appropriate mood/affect, cooperative Results - Labs CBC & Chem 7: 10/18/19 04:30 10/18/19 04:30 - Imaging and Cardiology CT Scan - head: report reviewed (CTA of neck), image reviewed Venous US: report reviewed (carotid ultrasound), image reviewed Assessment and Plan Patient appears to have returned to his baseline. His symptoms do not appear to be originating from his carotid stenosis. The patient states that he follows up with surveillance ultrasounds for his carotid disease with his nutrition services worker Dr. Barros. Additionally, the patient has an abdominal aortic aneurysm which is also followed with serial ultrasounds with Dr. Barros. Per patient, this is been stable. The patient is already on appropriate medical therapy. He will need follow-up as an outpatient with either cardiology or in our office. Okay to discharge the patient home from a vascular point of view.
--- NOTE | 2019-10-19 11:43 | Magnetic Resonance Report ---
MRI BRAIN WITHOUT CONTRAST INDICATION / CLINICAL INFORMATION: stroke. TECHNIQUE: Multiplanar, multisequence MR images of the brain were obtained. COMPARISON: None available. FINDINGS: BRAIN / INTRACRANIAL CONTENTS: The motion degrades the image quality despite using a fast acquisition sequences. However, there appears be a mild paravertebral white matter changes most consistent with age-appropriate microvascular angiopathy. The diffusion imaging reveals no evidence of acute infarcti on. There is mild cerebral atrophy. The ventricular system is correspondingly appropriate in size and configuration. No extra-axial fluid collections or significant mass effect is identified. CRANIOCERVICAL JUNCTION: No significant abnormality. VASCULAR FLOW-VOIDS: No significant abnormality. ORBITS: No significant abnormality of visualized orbits. SINUSES / MASTOIDS: No significant abnormality of the visualized paranasal sinuses or mastoid air vilma ls. ADDITIONAL FINDINGS: None. IMPRESSION: 1. The MRI of the brain is unremarkable for age without evidence of acute infarction. Signer Name: Yung Aguayo MD Signed: 10/19/2019 11:38 AM Workstation Name: [id number]
[2019-10-19] MEDS: METOPROLOL SUCCINATE XL 100 MG TAB PO SCH (11:44)
[2019-10-19] MEDS: ASPIRIN 325 MG TAB PO SCH (11:44)
[2019-10-19] MEDS: HEPARIN 5,000 UNIT/1 ML VIAL SUB-Q SCH (11:45)
[2019-10-19] MEDS: FAMOTIDINE 20 MG/2 ML INJ IV SCH (11:46)
--- NOTE | 2019-10-19 13:22 | Magnetic Resonance Report ---
MR MRA/MRV head wo con INDICATION / CLINICAL INFORMATION: 74 years Male; stroke. TECHNIQUE: 3-D time of flight. NASCET type criteria used to evaluate stenoses. COMPARISON: None available. FINDINGS: INTERNAL CAROTID ARTERIES: No significant narrowing appreciated. 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 There is no significant focal stenosis involving the vertebral basilar system. DISTAL BRANCHES: There is origin of the left [employer], also a developmental variant. There is no sig nificant focal narrowing involving the visualized cerebral arteries. ANEURYSM: None identified. 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 Otherwise, the MRA of the head is unremarkable w ithout significant focal stenosis involving the visualized intracranial vessels. Signer Name: Yung Aguayo MD Signed: 10/19/2019 1:18 PM Workstation Name: [id number]
--- NOTE | 2019-10-19 13:25 | Discharge Summary ---
Providers - Providers Date of Admission: 10/19/19 10:17 Attending physician: ANJANA HAYS MD 10/17/19 20:59 Consult to Physician [CONS] Routine Comment: Consulting Provider: DAR OSHEA Physician Instructions: Reason For Exam: acute CVA versus TIA 10/17/19 21:04 Occupational Therapy Evaluate and Treat [CONS] Routine Comment: Reason For Exam: Neuro deficits Physical Therapy Evaluation and Treat [CONS] Routine Comment: Reason For Exam: Neuro deficits 10/18/19 11:48 Consult to Physician [CONS] Routine Comment: Consulting Provider: LEDY KUHN Physician Instructions: Reason For Exam: R ICA stenosis Primary care physician: LEDY VASQUEZ Hospitalization Condition: Stable Hospital course: 74-year-old man with previous history of amaurosis fugax of his right eye 7 years ago who presents to the hospital with 1 day of ataxic gait. The patient relates that he had a headache over his right eye and right blepharospasm which was similar to his previous episode. With that episode he lost vision in his right eye, but this time he did not lose any vision his right eye but instead noticed that he had trouble walking. He is more comfortable driving that he is walking at this time due to ataxia. TIA Patient had ataxia, which resolved after less than 48 hours. His medication optimized, he was already on aspirin therefore Plavix was added which he is to take for only 30 days and not to refill. Case discussed with neurologist LDL at goal, continue statins. Left carotid stenosis noted, it is not critical, vascular surgery/IR input appreciated, continue outpatient follow-up. Echo with no acute findings, mr brain was neg Dx TIA Carotid stenosis -HTN AAA- follow annually for [facility] Disposition: DC-01 TO HOME OR SELFCARE Time spent for discharge: 35 minutes Core Measure Documentation - Palliative Care Palliative Care/ Comfort Measures: Not Applicable - Core Measures Any of the following diagnoses?: stroke - Stroke Discharge Requirements Statin for LDL = or >70 mg/dl on DC: Not Applicable Anticoag for atrial fib/atrial flutter: Not Applicable Antithrombotic for ischemic stroke: Yes Exam - Constitutional Vitals: Temp Pulse Resp BP Pulse Ox 98.0 F 63 18 181/89 97 10/18/19 07:46 10/19/19 10:00 10/18/19 07:46 10/18/19 07:46 10/18/19 07:46 General appearance: Present: no acute distress, well-nourished - EENT Eyes: Present: PERRL ENT: hearing intact, clear oral mucosa - Neck Neck: Present: supple, normal ROM - Respiratory Respiratory effort: normal Respiratory: bilateral: CTA - Cardiovascular Heart Sounds: Present: S1 & S2. Absent: rub, click - Extremities Extremities: pulses symmetrical, No edema Peripheral Pulses: within normal limits - Abdominal General gastrointestinal: Present: soft, non-tender, non-distended, normal bowel sounds Male genitourinary: Present: normal - Integumentary Integumentary: Present: clear, warm, dry - Musculoskeletal Musculoskeletal: gait normal, strength equal bilaterally - Psychiatric Psychiatric: appropriate mood/affect, intact judgment & insight - Neurologic Neurologic: CNII-XII intact, moves all extremities Plan Additional Instructions: Plavix is to be taken for 30 days only. It is not to be refilled Follow up with: LEYD VASQUEZ MD [Primary Care Provider] - 3-5 Days Prescriptions: Clopidogrel [Plavix] 75 mg PO QDAY #30 tablet
--- NOTE | 2019-10-19 13:32 | Magnetic Resonance Report ---
MR a neck without contrast CLINICAL HISTORY: Cerebrovascular accident. FINDINGS: 2-D [id number] MRA of the neck was performed. The motion degrades the image quality. Ho wever, there is irregularity of the proximal left ICA compatible with atherosclerotic plaque with mil d stenosis by NASCET criteria. There does not appear to be significant stenosis involving visualized right carotid arteries. 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 The left vertebral artery is dominan t without significant focal narrowing. IMPRESSION: The motion degrades image quality. However, the findings are compatible with atherosclerotic plaque i nvolving proximal left ICA with mild stenosis by NASCET criteria. 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 Signer Name: Yung Aguayo MD Signed: 10/19/2019 1:28 PM Workstation Name: [id number]
[2019-10-19] MEDS ORDERED: FAMOTIDINE 20 MG TAB PO SCH (22:00)
== END 2019-10-19 15:10 | disposition home or self-care (01) | DRG 69 ==
LOC: ED 07:47 → 4A 13:55 → INTOOBSV 13:55 → 4A 15:07 → OBSVTOIN 10-19 10:17
PROVIDERS: ADMIT Internal Medicine; ATTEND Internal Medicine
DX: G45.9 Transient cerebral ischemic attack, unspecified (principal); I25.10 Atherosclerotic heart disease of native coronary artery without angina pectoris; I71.4 Abdominal aortic aneurysm, without rupture; E78.2 Mixed hyperlipidemia; I10 Essential (primary) hypertension; M19.90 Unspecified osteoarthritis, unspecified site; R26.0 Ataxic gait; I25.2 Old myocardial infarction; Z95.5 Presence of coronary angioplasty implant and graft; Z87.891 Personal history of nicotine dependence; Z82.49 Family history of ischemic heart disease and other diseases of the circulatory system; Z79.82 Long term (current) use of aspirin; Z79.899 Other long term (current) drug therapy; Z95.1 Presence of aortocoronary bypass graft; Z85.828 Personal history of other malignant neoplasm of skin
CPT/HCPCS: 36415; 70450; 70498; 70544; 70547; 70551; 71045; 80053; 80061; 81001; 83036; 84443; 84484; 85025; 85027; 85610; 93005; 93010; 93306; 93880; 96360; G0378; A9270-GY; J1644; J7030; Q9967